=== PATIENT | female | born 2000 | race Caucasian/White ===

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

== ENCOUNTER 2020-01-18 11:40 | Outpatient (CLI) | payer MEDICAID ==
--- NOTE | 2020-01-18 14:24 | Ultrasound Report ---
PROCEDURE: OB First Trimester INDICATIONS: 1ST TRI PREG PAIN AND CRAMPING LOWER UTERINE SEG OUTSIDE/PRIOR DATING DATA: Last menstrual period (LMP): 11/04/2019. LMP-based estimated date of delivery (WENDI): 08/10/2020. First dating scan (date and location): 01/18/2020. Estimated date of delivery (WENDI) from first dating scan: 08/08/2020. TECHNIQUE: Real-time scanning was performed of the fetus and maternal pelvic organs, with image documentation. COMPARISON: None. FINDINGS: Embryo: Single living intrauterine gestation with an estimated sonographic gestational age of approx imately 11 weeks and 0 days based off crown-rump length measuring 4.1 cm. There is suggestion of a possible midline ventral abdominal wall defect with possible omphalocele vis ualized near the cord insertion Measurement variability in dating: +/- 4 weeks by LMP, +/- 7 days by mean sac diameter (use before 6 weeks gestation if crown-rump length not able to be measured), +/- 5 days by crown-rump length (6-12 weeks gestation). Maternal organs: Ovaries appear unremarkable. Limited images through the kidneys demonstrate no hyd ronephrosis. Maternal cervix appears visibly long and closed. IMPRESSION: 1. Single living intrauterine gestation with an estimated sonographic gestational age of approximatel y 11 weeks and 0 days based off crown-rump length measuring 4.1 cm. 2. Findings consistent with abdominal wall/umbilical cord insertion defect over the ventral abdominal . Differential considerations include omphalocele, umbilical cord cyst, gastroschisis, body stalk ano charles, versus umbilical hernia. Recommend clinical follow-up with laboratory evaluation for maternal s davide alpha-fetoprotein. Genetic testing and/or MFM consultation is also suggested. Reviewed by: Malik Paniagua MD on 01/18/2020 2:22 PM PDT Approved by: Malik Paniagua MD on 01/18/2020 2:22 PM PDT Station ID: [id number]
== END 2020-01-18 11:41 | disposition home or self-care (01) ==
LOC: DI 11:40
PROVIDERS: ATTEND Midwife
DX: O26.891 Other specified pregnancy related conditions, first trimester (principal); R25.2 Cramp and spasm; R93.89 Abnormal findings on diagnostic imaging of other specified body structures
CPT/HCPCS: 76801